=== PATIENT | female | born 1980 | race Caucasian/White ===

== ENCOUNTER → 2017-12-13 | Outpatient (CLI) | payer OTHER ==
[2017-12-13 17:32] LABS: BASO # 0.1 10^3/uL (0.0-0.2); BASO % 0.7 % (0.0-1.0); EOS # 0.1 10^3/uL (0.0-0.50); EOS % 0.7 % (0.0-3.0); HEMATOCRIT 41.1 % (36.0-47.0); HEMOGLOBIN 13.7 g/dl (12.0-16.0); IMMATURE GRANULOCYTE % 0.2 % (0-3.0); LYMPH # 1.9 10^3/uL (1.5-4.5); LYMPH % 18.8 % (24.0-44.0); MEAN CORPUSCULAR HEMOGLOBIN 30.7 pg (27.0-33.0); MEAN CORPUSCULAR HGB CONC 33.3 g/dl (32.0-36.5); MEAN CORPUSCULAR VOLUME 92.2 fl (80.0-96.0); MONO # 0.7 10^3/uL (0.0-0.8); MONO % 6.3 % (0.0-5.0); NEUTROPHILS # 7.6 10^3/uL (1.8-7.7); NEUTROPHILS % 73.3 % (36.0-66.0); PLATELET COUNT, AUTOMATED 264 10^3/uL (150-450); RED BLOOD COUNT 4.46 10^6/uL (4.00-5.40); WHITE BLOOD COUNT 10.3 10^3/uL (4.0-10.0)
[2017-12-14 00:14] LABS: CHLAMYDIA DNA AMPLIFICATION NEGATIVE (NEGATIVE); GC DNA AMPLIFICATION NEGATIVE (NEGATIVE)
[2017-12-14 10:37] LABS: RUBELLA IgG QUALITATIVE IMMUNE (IMMUNE)
[2017-12-14 10:57] LABS: HBsAg Prenatal NEGATIVE (NEGATIVE)
[2017-12-14 11:07] LABS: HIV 1&2 SCREEN CENTAUR NEGATIVE (NEGATIVE)
== END ==
LOC: M SMT 11:27
DX: Z36.89 Encounter for other specified antenatal screening (principal); Z3A.08 8 weeks gestation of pregnancy
CPT/HCPCS: 86762

== ENCOUNTER → 2018-03-06 | Outpatient (CLI) | payer OTHER | LOC: M SMT 09:31 | DX: Z34.82 Encounter for supervision of other normal pregnancy, second trimester (principal); Z3A.20 20 weeks gestation of pregnancy | CPT/HCPCS: 76811 ==

== ENCOUNTER → 2018-03-27 | Outpatient (CLI) | payer OTHER | LOC: M SMT 11:13 | DX: O09.522 Supervision of elderly multigravida, second trimester (principal) ==

== ENCOUNTER → 2018-05-01 | Outpatient (CLI) | payer OTHER ==
[2018-05-01 13:11] LABS: HEMATOCRIT 35.7 % (36.0-47.0); HEMOGLOBIN 11.6 g/dl (12.0-15.5); MEAN CORPUSCULAR HEMOGLOBIN 30.1 pg (27.0-33.0); MEAN CORPUSCULAR HGB CONC 32.5 g/dl (32.0-36.5); MEAN CORPUSCULAR VOLUME 92.7 fl (80.0-96.0); PLATELET COUNT, AUTOMATED 251 10^3/uL (150-450); RED BLOOD COUNT 3.85 10^6/uL (4.00-5.40); RED CELL DISTRIBUTION WIDTH 12.5 % (11.5-14.5); WHITE BLOOD COUNT 8.3 10^3/uL (4.0-10.0)
[2018-05-01 13:34] LABS: GLUCOSE CHALLENGE TEST 1 HOUR 125 MG/DL (LESS THAN 140)
[2018-05-02 09:05] LABS: RH ONLY RHOGAM 1 1
== END ==
LOC: M SMT 10:45
DX: Z34.82 Encounter for supervision of other normal pregnancy, second trimester (principal)
CPT/HCPCS: 82950

== ENCOUNTER → 2018-06-29 | Outpatient (REF) | payer OTHER | LOC: M LAB REF 13:13 | DX: Z34.83 Encounter for supervision of other normal pregnancy, third trimester (principal) ==

== ENCOUNTER 2018-07-30 02:45 | Inpatient (IN) | payer OTHER ==
[2018-07-30 02:59] LABS: HEMATOCRIT 35.5 % (36.0-47.0); HEMOGLOBIN 11.8 g/dl (12.0-15.5); MEAN CORPUSCULAR HEMOGLOBIN 29.6 pg (27.0-33.0); MEAN CORPUSCULAR HGB CONC 33.2 g/dl (32.0-36.5); PLATELET COUNT, AUTOMATED 215 10^3/uL (150-450); RED BLOOD COUNT 3.99 10^6/uL (4.00-5.40); RED CELL DISTRIBUTION WIDTH 15.8 % (11.5-14.5); WHITE BLOOD COUNT 10.5 10^3/uL (4.0-10.0)
[2018-07-30] MEDS: LR 1,000 ML IV (03:00)
[2018-07-30] MEDS: LACTATED RINGER'S 1000 ML IV (03:00)
[2018-07-30] MEDS ORDERED: OXYTOCIN 30 UNITS IN 0.9% NaCl 500ML IV BAG (J2590) As Ordered (03:25)
[2018-07-30] MEDS ORDERED: FENTANYL 2MCG/ML ROPIVACAINE 0.2% IN 0.9% NACL 200ML IVBAG As Ordered (03:27)
[2018-07-30] MEDS ORDERED: EPIDURAL COMMENT XX (03:53)
[2018-07-30] MEDS ORDERED: diphenhydrAMINE INJ 50MG/ML VIAL (J1200) IV (03:53)
[2018-07-30] MEDS ORDERED: ONDANSETRON 4MG/2ML VIAL (J2405) IV (03:53)
[2018-07-30] MEDS ORDERED: FENTANYL/ROPIVACAINE/NACL BAG 200 ML EPIDURAL (03:53)
[2018-07-30] MEDS ORDERED: NALOXONE INJ 0.4 MG/1 ML VIAL (J2310) IV (03:53)
[2018-07-30] MEDS ORDERED: EPIDURAL/PCA KEYS XX (03:53)
[2018-07-30] MEDS ORDERED: REFRIGERATOR IV KEYS XX (03:53)
[2018-07-30] MEDS ORDERED: ePHEDrine SULFATE 25 MG/5 ML(5MG/ML) SYRINGE IV (03:53)
[2018-07-30 07:49] LABS: CORD GAS ABE A -6.6; CORD GAS ABE V -1.2; CORD GAS HCO3 A 21.9 MEQ/L; CORD GAS HCO3 V 24.4 MEQ/L; CORD GAS O2 SAT V 56.6 %; CORD GAS PCO2 A 54.5 mmHg; CORD GAS PCO2 V 43.8 mmHg; CORD GAS PH A 7.221 UNITS; CORD GAS PH V 7.363 UNITS; CORD GAS PO2 A 24.4 mmHg; CORD GAS PO2 V 23.2 mmHg; CORD GAS SBC A 18.1 MEQ/L; CORD GAS SBC V 22.4 MEQ/L; CORD GAS TCO2 A 23.5 MEQ/L; CORD GAS TCO2 V 25.7 MEQ/L
[2018-07-30] MEDS: OXYTOCIN DRIP 30 UNITS in APPROPRIATE DILUENT 1 EA IV (07:59)
[2018-07-30] MEDS ORDERED: METHYLERGONOVINE MALEATE 0.2 MG TAB PO (08:00)
[2018-07-30] MEDS ORDERED: PROMETHAZINE 25 MG TAB PO (08:00)
[2018-07-30] MEDS ORDERED: ANUSOL HC CREAM 30GM TOP (08:00)
[2018-07-30] MEDS ORDERED: DIBUCAINE 1% OINTMENT 30GM TOP (08:00)
[2018-07-30] MEDS: PRENATAL VITAMINS CHEWABLE TABLET PO (09:32)
[2018-07-30] MEDS: IBUPROFEN 800 MG TAB PO (15:32)
[2018-07-30] MEDS: DOCUSATE SODIUM 100 MG CAP PO (20:57)
[2018-07-30] MEDS: ACETAMINOPHEN 500 MG TAB PO (20:58)
[2018-07-30 21:06] LABS: FETAL SCREEN PROF. 1 1
[2018-07-30] MEDS: RHOGAM 300 MCG (1500 IU) INJ (J2790) IM (21:18)
[2018-07-30] MEDS: MEASLES,MUMPS,RUBELLA VACCINE INJ (MMR-II) (90707) SC (21:24)
[2018-07-31] MEDS: PRENATAL VITAMINS CHEWABLE TABLET PO (08:03)
[2018-07-31] MEDS ORDERED: diphenhydrAMINE CREAM 30GM TOP (08:45)
[2018-07-31] MEDS: LORATADINE 10 MG TAB PO (09:50)
[2018-07-31] MEDS: IBUPROFEN 800 MG TAB PO (20:26)
[2018-07-31] MEDS: DOCUSATE SODIUM 100 MG CAP PO (20:26)
[2018-08-01] MEDS: LORATADINE 10 MG TAB PO (09:05)
[2018-08-01] MEDS: PRENATAL VITAMINS CHEWABLE TABLET PO (09:05)
== END 2018-08-01 10:00 | disposition home or self-care (01) | DRG 775 ==
LOC: M LDI 02:45 → M OBS 09:00
PROVIDERS: Obstetrics & Gynecology
PROC: 10E0XZZ Delivery of Products of Conception, External Approach (ICD-10-PCS; principal; 2018-07-30)
PROC: 10907ZC Drainage of Amniotic Fluid, Therapeutic from Products of Conception, Via Natural or Artificial Opening (ICD-10-PCS; 2018-07-30)
DX: O48.0 Post-term pregnancy (principal); Z3A.40 40 weeks gestation of pregnancy; Z37.0 Single live birth

== ENCOUNTER → 2019-07-27 | Outpatient (REF) | payer OTHER ==
[~2019-07-27] MED LIST: CLAR10CA3 PO; IBUP-1114 PO; MAPA500T2 PO; PRENTAB9 PO; VALT500T PO
[2019-08-01 08:20] LABS: HPV HYBRID CAPTURE II Negative (Negative)
== END ==
LOC: M LAB REF 16:48
PROVIDERS: ATTEND Advanced Practice Midwife
DX: Z12.4 Encounter for screening for malignant neoplasm of cervix (principal)
CPT/HCPCS: 87624; G0123

== ENCOUNTER → 2020-04-30 | Outpatient (CLI) | payer OTHER ==
[~2020-04-30] MED LIST changes: +PROHANCE 279.3MG/ML 15ML VIAL As Ordered ONE; +PROHANCE 279.3MG/ML 5ML VIAL As Ordered ONE
--- NOTE | 2020-05-01 12:06 | REP ---
MRI brain: 04/30/2020. Indication: Multiple sclerosis. Technique: Multiplanar short and long TR sequences of the brain were performed including post IV gadolinium imaging. Comparison: None. Findings: There is no intracranial mass effect, hydrocephalus or significant hemorrhage. No areas of pathologic gadolinium enhancement are present. There are no areas of restricted diffusion. No signal abnormalities are noted within the brainstem or brain parenchyma. The craniocervical junction is unremarkable. Impression: No acute intracranial process. No abnormal white matter signal or enhancement. Electronically Signed by Migel Johnston DO 05/01/2020 11:57 A
== END ==
LOC: M RAD 15:58
PROVIDERS: ATTEND Family Medicine
DX: G60.9 Hereditary and idiopathic neuropathy, unspecified (principal)
CPT/HCPCS: 70553; A9576

== ENCOUNTER → 2021-09-07 | Outpatient (CLI) | payer OTHER ==
[~2021-09-07] MED LIST changes: -PROHANCE 279.3MG/ML 15ML VIAL As Ordered ONE; -PROHANCE 279.3MG/ML 5ML VIAL As Ordered ONE
--- NOTE | 2021-09-08 09:19 | REP ---
INDICATION: MASTODYNIA. COMPARISON: This is the patient's baseline mammogram. TECHNIQUE: 2D and 3D cc and MLO views of both breasts were obtained. Supplemental 2D and 3D spot compression views of the left breast were obtained. Targeted left breast ultrasound was performed. FINDINGS: [facility] volumetric breast density pattern is C, the breasts are heterogeneously dense, which may obscure small masses. In the middle 3rd of the left breast above and lateral to the nipple, in the upper outer quadrant, there is an isodense focal asymmetry. The right breast has a normal mammographic appearance. Left breast ultrasound: 1 o'clock, 5-6 cm from the nipple, 13 x 12 x 7 mm, clustered microcysts. IMPRESSION: BIRADS/ACR : Category 3: Probably benign. This patient's Tyrer-Cuzick lifetime breast cancer risk assessment score is 13.8%. This mammogram was interpreted with the aid of an FDA-approved computer-aided detection system. The patient states she has not had a clinical breast examination in greater than 1 year. The patient letter being requested is M3. RECOMMENDATION: Six-month follow-up ultrasound evaluation of the left breast. <Electronically signed by Wes Allred > 09/08/21 [id number]
== END ==
LOC: M WHC 14:05
PROVIDERS: ATTEND Family Medicine
DX: N64.4 Mastodynia (principal)

== ENCOUNTER → 2022-03-11 | Outpatient (CLI) | payer OTHER | LOC: M WHC 10:54 | PROVIDERS: ATTEND Family Medicine | DX: N60.19 Diffuse cystic mastopathy of unspecified breast (principal) ==

== ENCOUNTER → 2022-09-08 | Outpatient (CLI) | payer OTHER | LOC: M WHC 09:31 | PROVIDERS: ATTEND Registered Nurse | DX: R92.8 Other abnormal and inconclusive findings on diagnostic imaging of breast (principal); N60.12 Diffuse cystic mastopathy of left breast; N63.21 Unspecified lump in the left breast, upper outer quadrant | CPT/HCPCS: 77066; G0279 ==

== ENCOUNTER → 2024-09-11 | Outpatient (CLI) | payer OTHER ==
[~2024-09-11] MED LIST changes: +ACYC1TAB PO; +D 1010004 PO; +OYST1TAB PO; +SERT50TA29 PO
== END ==
LOC: M WHC 10:29
PROVIDERS: ATTEND Family Medicine
DX: Z12.31 Encounter for screening mammogram for malignant neoplasm of breast (principal)

== ENCOUNTER → 2025-09-12 | Outpatient (CLI) | payer OTHER ==
[~2025-09-12] MED LIST changes: +ACYC-438 PO; -ACYC1TAB PO
== END ==
LOC: M WHC 10:01
PROVIDERS: ATTEND Family Medicine
DX: Z12.31 Encounter for screening mammogram for malignant neoplasm of breast (principal)